=== PATIENT | female | born 1975 | race Caucasian/White ===

== ENCOUNTER 2017-10-18 18:05 | Emergency (ER) | payer MEDICAID, SELFPAY ==
[2017-10-18 18:06] VITALS: BP 124/59; PULSE 97; RESP 18; TEMP 36.6; O2SAT 98; BMI 29.3
[2017-10-18 18:56] VITALS: O2SAT 100
[2017-10-18 19:18] LABS: Carboxyhemoglobin Frac (CO) 2.7 % (0.0-1.5)
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
[2017-10-18 20:05] VITALS: BP 131/83; PULSE 83; RESP 20; O2SAT 99
== END 2017-10-18 20:06 | disposition home or self-care (01) ==
LOC: ED 19:06
PROVIDERS: Emergency Provider Emergency Medicine; Family Provider Family Medicine; PCP Family Medicine
DX: R51 Headache (principal); R41.0 Disorientation, unspecified; Z77.29 Contact with and (suspected) exposure to other hazardous substances; R68.83 Chills (without fever); J02.9 Acute pharyngitis, unspecified; R07.9 Chest pain, unspecified; R06.00 Dyspnea, unspecified; R11.0 Nausea; R19.7 Diarrhea, unspecified; R30.0 Dysuria; N80.9 Endometriosis, unspecified
CPT/HCPCS: 36415; 82375; 99282

== ENCOUNTER 2018-04-28 08:42 | Emergency (ER) | payer MEDICAID, SELFPAY ==
[2018-04-28 08:42] VITALS: BP 115/63; PULSE 121; RESP 18; TEMP 36.4; O2SAT 100; BMI 30.1
--- NOTE | 2018-04-28 08:56 | ED.VISSUMM ---
- ER Visit Summary Date of Service: 04/28/18 Chief Complaint: Abdominal pain, nausea, vomiting, dysuria History of Present Illness: The patient is a 42 F who presents with the above symptoms. Is been ongoing for the past week. She describes a diffuse cramping abdominal pain. Nothing makes it better or worse. She has had nausea with vomiting for the same amount of time. She has also been having some diarrhea. She admits to some dysuria. She has a history of endometriosis and H. pylori. She admits to sweats but no evidence of fevers. She took nothing for this at home. She has a history of C-sections but no other abdominal surgeries. Physical Examination: Vital signs reviewed. HEENT exam unremarkable. Heart is tachycardic and regular rhythm without murmurs. Lungs are clear to auscultation. Abdomen is soft with diffuse abdominal tenderness. No guarding or rebound tenderness. Extremities reveal no edema. Skin exam normal. Neurologic exam normal. Test Results: White blood cell count 17.3, electrolytes normal. Urinalysis is positive for infection. CAT scan reveals bladder wall thickening consistent with a UTI Emergency Department Course and Treatment: Patient was given normal saline, Bentyl and Zofran. I also gave her Toradol. She has evidence of UTI. I will treat her with Bactrim and naproxen for home. Will follow up with her PCP. Treatment Plan: [] Disposition: Discharge Impression: UTI This note was generated with [employer] dictation software. It may contain incorrect words, spelling, and punctuation that were not noted in review of the chart prior to signing ED Disposition - Plan for ED Patient: Chief Complaint: Abd Pain Referrals: Dolye Mullen MD [Primary Care Provider] -
[2018-04-28] MEDS: Dicyclomine 20 MG/2 ML Vial IM (09:34)
[2018-04-28] MEDS: Ondansetron 4 MG/2 ML Vial IV (09:36)
[2018-04-28] MEDS: 0.9% Normal Saline 1,000 ML 1000 ML IV (09:36)
[2018-04-28 09:48] LABS: Absolute Lymphocyte Count 1.59 X10^3/ul (0.83-4.51); Absolute Neutrophil Count 14.7 X10^3/uL (2.0-7.7); Basophil# 0.02 X10^3/uL; Basophil% 0.1 % (0-1); Eosinophil# 0.03 X10^3/uL; Eosinophils% 0.2 % (0-5); Hematocrit 44.2 % (37-47); Hemoglobin 15.7 g/dl (12.0-15.0); Lymphocyte # 1.59 X10^3/ul (4.0); Lymphocyte % 9.2 % (19-41); Mean Corp Hgb Conc 35.5 g/gl (32-36); Mean Corpuscular Hgb 31.2 pg (27.0-32.0); Mean Corpuscular Volume 87.7 fL (81-99); Monocyte# 0.84 X10^3/uL; Monocyte% 4.9 % (0-10); Neutrophil # 14.74 X10^3/uL (2.7-7.7); Neutrophil % 85.3 % (47-70); POSITIVE COUNT NO; POSITIVE DIFFERENTIAL NO; POSITIVE MORPHOLOGY NO; Platelet Count 286 K/mm3 (150-450); RBC Distribution Width CV 12.3 % (11.6-14.6); RBC Distribution Width SD 38.8 fl (35.1-43.9); Red Blood Count 5.04 M/mm3 (4.2-5.4); White Blood Count 17.3 K/mm3 (4.4-11.0)
--- NOTE | 2018-04-28 09:51 | CT_ITS ---
STUDY: CT ABDOMEN AND PELVIS WITHOUT CONTRAST REASON FOR EXAM: Female, 42 years old. Abdominal pain. Burning sensation with urination. RADIATION DOSAGE (If Supplied By Facility): CTDIvol = ( 11.34 ) mGy, DLP = ( 488.21 ) mGycm TECHNIQUE: Transaxial images were obtained from the dome of the diaphragm to the symphysis pubis without oral contrast, and without intravenous contrast. Sagittal and coronal images were reconstructed. Individualized dose optimization techniques were used for this CT. COMPARISON: Comparison is made with prior study dated December 23, 2016. FINDINGS: The visualized lung bases are unremarkable. The visualized portions of the heart are within normal limits. Normal liver. Normal gallbladder and extrahepatic biliary system. Normal spleen. Normal pancreas. Normal bilateral adrenal glands. Normal right kidney. Normal left kidney. There is a small hiatal hernia. Normal small intestine. Normal colon. The appendix is visualized and appears normal. Normal abdominal aorta. Normal inferior vena cava. There is borderline retroperitoneal lymphadenopathy with enlarged nodes no greater than 10mm in the short axis diameter. Diffuse bladder wall thickening although the bladder is not adequately distended. A dominant follicle is seen in the right ovary. This measures 1.6 cm. There is a small umbilical hernia containing fat. Straightening of the normal lumbar lordosis. Disc space narrowing and spondylosis at the L4-L5 level. CT/Abdomen/Pelvis without Cont IMPRESSION: Diffuse bladder wall thickening. Cystitis should BE ruled out. Electronically Signed: Miguel Jo MD at 11:13 EDT Tel [phone], Service support ,
[2018-04-28 10:06] LABS: AST(SGOT) 28 U/L (15-37); Alanine Aminotransfer ALT/SGPT 33 U/L (13-56); Alkaline Phosphatase 85 U/L (45-117); Anion Gap 4 (5-15); BUN 10 mg/dL (7-18); BUN/Creat Ratio 13.6 RATIO (10-20); Calcium,Total 8.8 mg/dL (8.5-10.1); Chloride 106 mmol/L (98-107); Creatinine, Serum 0.73 mg/dL (0.55-1.02); EST Glomerular Filtration Rate 92 mL/min (>60); Est Glom Filt Rate - Afr Amer 111 mL/min (>60); Estimated Creatinine Clearance 86.69 ml/min; Globulin 4.2 g/dL (2.2-4.2); Glucose 106 mg/dL (74-106); Lipase 199 U/L (73-393); Potassium 4.2 mmol/L (3.5-5.1); Protein, Total 8.2 g/dL (6.4-8.2); Sodium Level 137 mmol/L (136-145)
[2018-04-28 10:18] LABS: Mucous, Urine 0 SEEN /hpf (<or=2+); Squamous Epithelial Cells - UA 0 SEEN /hpf (5-10)
[2018-04-28 10:20] LABS: Color, Urine Yellow (Yellow); Glucose, Dipstick 50 mg/dl (Normal); Ketone-Dipstick Negative (Negative); Leukocyte Esterase-Dipstick 100 /ul (Negative); Nitrite-Dipstick Positive (Negative); Occult Blood-Urine 50 /ul (Negative); Protein-Dipstick 30 mg/dl (Negative); Specific Gravity, Urine 1.015 (1.002-1.030); Urine Bilirubin Dipstick Negative (Negative); Urine Clarity Sl. Cloudy (Clear); Urine Urobilinogen Normal (Normal)
[2018-04-28 10:25] LABS: Internal QC Validated? YES +Cl - CLEAR BKGD; Pregnancy, Urine Negative Negative
[2018-04-28 10:28] LABS: Bacteria 2+ /hpf (None Seen); Red Blood Cells-Urine 0-5 SEEN /hpf (0-5); White Blood Cells 10-25 SEEN /hpf (0-5)
[2018-04-28] MEDS: Ketorolac 30 MG/ML Syringe IV ×2 (10:32→11:44)
--- NOTE | 2018-04-28 11:17 | ED.DEP ---
ED Disposition - Plan for ED Patient: Disposition: Home or Assisted Living Chief Complaint: Abd Pain Instructions: ED UTI Cystitis Female Prescriptions: Naproxen [Naprosyn] 500 mg PO BID PRN #20 tab Smz/Tmp Ds [Bactrim Ds] 1 tab PO BID #14 tab Referrals: Doyle Mullen MD [Primary Care Provider] -
[2018-04-28 11:53] VITALS: PULSE 110; RESP 17; O2SAT 97
== END 2018-04-28 11:56 | disposition home or self-care (01) ==
PROVIDERS: Emergency Provider Emergency Medicine; Family Provider Family Medicine; PCP Family Medicine
DX: N39.0 Urinary tract infection, site not specified (principal); R19.7 Diarrhea, unspecified; N80.9 Endometriosis, unspecified; Z86.19 Personal history of other infectious and parasitic diseases
CPT/HCPCS: 74176; 80053; 81001; 81025; 83690; 85025; 87077; 87086; 87088; 87186; 96361; 96372; 96374; 96375; 99285; J7030; A4216; J2405

== ENCOUNTER 2019-02-22 10:05 | Emergency (ER) | payer MEDICAID, SELFPAY ==
[2019-02-22 10:06] VITALS: BP 140/84; PULSE 81; RESP 18; TEMP 36.6; O2SAT 99; BMI 31.8
--- NOTE | 2019-02-22 10:53 | ED.VIS.GEN ---
History of Present Illness Chief Complaint: Shortness of Breath Informant: Patient Onset: Weeks Context: Gradual Onset Timing: Intermittent Current Severity: Moderate Maximum Severity: Moderate Narrative: The patient presents to the emergency department with cough, nasal drainage, sneezing. She is concerned because recently, they were doing cleaning at home. She states that she found which he suspected to be black mold. She is noticed that everyone in the house has been having similar symptoms. She denies any short of breath, but has had cough and generalized fatigue. She denies any fevers or chills. She denies chest pain or back pain. The patient has no history of underlying lung disease. She is otherwise been in her normal state of health. Prior similar symptoms: No Recent Illness/Hospitalization: No Past Medical History - Allergies and Home Meds Allergies/Adverse Reactions: Allergies Penicillins Allergy (Verified 02/22/19 10:08) Anaphylaxis Primary Care Physician: Doyle Mullen MD [Primary Care Provider] - Prior records reviewed: Yes Past Medical History: - Surgical History: no surgical history Smoking Status: Never smoker Review of Systems General: Reports: Malaise. Denies: Chills, Fever, Sweats Eyes: Denies: Visual changes - bilaterally, Diplopia ENT: Denies: Rhinorrhea, Sore throat Cardiovascular: Denies: Chest pain, Palpitations Respiratory: Reports: Cough. Denies: Dyspnea, Dyspnea on exertion Gastrointestinal: Denies: Abdominal pain, Nausea, Vomiting, Diarrhea, Melena, Hematochezia Genitourinary: Denies: Dysuria, Hematuria, Frequency Musculoskeletal: Denies: Back pain, Extremity Pain Skin: Denies: Rash, Wounds Neurological: Denies: Headache, Weakness, Numbness Physical Exam Vital Signs/Narrative: Vital Signs Temp Pulse Resp BP Pulse Ox 02/22/19 10:06 97.8 F 81 18 140/84 H 99 Inital Vital Signs reviewed: Yes General: Well nourished, Well developed, No Acute Distress Head: Normocephalic, Atraumatic Eyes: Perrl, EOMI ENT: Moist mucous membranes, No rhinorrhea Neck: Supple, Nontender Cardiovascular: Regular rate, Regular rhythm, No murmurs Respiratory: No distress, CTA bilaterally, Chest nontender Abdomen: Soft, Nontender, Nondistended, Normal bowel sounds Back: Nontender, Normal Inspection Extremities: Nontender, No edema Skin: Normal color, No rash Neurological: Alert, Oriented x3, Cranial nerves II-XII grossly intact, Normal Strength, Normal Sensation Psychological: Normal affect, Normal Mood Diagnostic/Tx/Re-eval - Medical Decision Making The patient symptoms do seem primarily reactive. She has no wheezing. Oropharynx is patent. Heart is regular rate and rhythm. She has no hypoxia or tachypnea. There is no history of carbon monoxide exposure and this is been going on for 3 weeks. Again, my suspicion is that this is likely an irritant. Patient will be placed on prednisone and allergy medication. She is in the process of trying to treat the mold. I do not suspect a dangerous process. I do feel that she is safe for discharge. Impression Allergic bronchitis ED Disposition - Plan for ED Patient: Instructions: BRONCHOSPASM (Adult) Prescriptions: Prednisone [Deltasone] 60 mg PO DAILY #15 tab Prescription Printed Referrals: Doyle Mullen MD [Primary Care Provider] -
[2019-02-22] MEDS: predniSONE 20 MG Tablet 60 MG PO (11:29)
[2019-02-22 11:43] VITALS: PULSE 74; RESP 14; O2SAT 98
== END 2019-02-22 11:43 | disposition home or self-care (01) ==
LOC: ED 10:42
PROVIDERS: Emergency Provider Emergency Medicine; Family Provider Family Medicine; PCP Family Medicine
DX: J45.909 Unspecified asthma, uncomplicated (principal)
CPT/HCPCS: 99283

== ENCOUNTER 2021-03-23 09:55 | Emergency (ER) | payer MEDICAID, SELFPAY ==
[2021-03-23 09:56] VITALS: BP 141/84; PULSE 98; RESP 16; TEMP 36.3; O2SAT 100; BMI 28.3
--- NOTE | 2021-03-23 10:45 | US_ITS ---
STUDY: ABDOMINAL ULTRASOUND - RIGHT UPPER QUADRANT REASON FOR VISIT: Female, 45 years old right upper quadrant pain with nausea and vomiting and diarrhea. TECHNIQUE: Ultrasound evaluation of the right upper quadrant was performed with real-time and static dang-scale imaging. TECHNICAL QUALITY: Adequate. COMPARISON: None. FINDINGS: Liver: The liver measures 15.6 cm. There is increased echogenicity consistent with fatty infiltration. The bile ducts are within normal limits. There is hepatic color flow. The direction of portal flow is hepatopetal. There is no demonstrated mass lesion. Gallbladder: Normal distended gallbladder. The gallbladder wall measures 2 mm. There is a negative sonographic Maloney''s sign. There is no pericholecystic fluid. 4 mm echogenic focus within the gallbladder lumen without posterior shadowing. This may represent either a small polyp or tiny nonshadowing stone. Common Bile Duct (C.B.D.): The common bile duct measures 9 mm. Pancreas: Normal size of the head, body and tail of the pancreas. There is normal echogenicity of the pancreas. There is no demonstrated pancreatic mass or cyst. Right Kidney: Normal size of the right kidney. The right kidney measures 11.5 cm x 5.1 cm x 3.9 cm. Normal renal cortex. The right cortex measures 1.1 cm. There is no demonstrated renal mass or cyst. There is no right hydronephrosis. US/Gallbladder IMPRESSION: Mild fatty infiltration of the liver. Possible tiny gallstone versus polyp. Dilated common bile duct measuring 9 mm. Electronically Signed: Miguel Jo MD at 13:20 EDT , Service support ,
--- NOTE | 2021-03-23 10:45 | EKG12_ITS ---
Test Reason : ABD PAIN Blood Pressure : / mmHG Vent. Rate : 091 BPM Atrial Rate : 091 BPM P-R Int : 112 ms QRS Dur : 090 ms QT Int : 372 ms P-R-T Axes : 063 054 033 degrees QTc Int : 457 ms Normal sinus rhythm Normal ECG Confirmed by RIDDHI RUDD, BRIAN ([id number]), news videotape editor KADIE NICOLE ([id number]) on 03/25/2021 11:24:02 AM Referred By: MEI Confirmed By:BRIAN HANNON MD
--- NOTE | 2021-03-23 10:47 | ED.VIS.GI ---
HPI HPI - GI History of Present Illness Chief Complaint: Abd Pain Informant: patient Narrative Narrative: Patient is a 45-year-old female with history of H. pylori infection and ongoing stomach issues presenting with worsening epigastric abdominal pain, nausea and vomiting. Patient states her symptoms been worsening for the past 2 weeks. Today she started feel dizzy while she was driving, nauseous and pulled over. She threw up yellow liquid and was dry heaving. She notes at that time she was feeling short of breath and her heart was racing. She has had associated diarrhea. Patient notes she had intermittent dark/black stools as well. She took her self off of ranitidine at some point because she received a flare in the mail stating that it could cause cancer. She notes that she was treated with 2 courses of antibiotics for H. pylori about a year ago but could not tolerate the medication so she stopped the treatment. Patient states the pain is a burning in her stomach and has been more constant over the past 2 weeks. She also feels that she is been more forgetful, cold all the time and gets numbness in her fingers. She notes she has an appointment to see GI doctor next week. She denies any chest pain or difficulty breathing. No other complaints at this time. She does admit she feels very anxious. Patient states over the past 2 weeks has had 2 - Covid test, the first on the and the second on the . PFSH PFSH Home Medications gabapentin [Neurontin] 300 mg PO QHS 04/28/18 [History Last Taken 04/27/18] naproxen 500 mg PO BID PRN #20 tab 04/28/18 [Rx Last Taken Unknown] sulfamethoxazole-trimethoprim 1 tab PO BID #14 tab 04/28/18 [Rx Last Taken Unknown] prednisone 60 mg PO DAILY #15 tab 02/22/19 [Rx Last Taken Unknown] famotidine [Pepcid] 20 mg PO BID #20 tab 03/23/21 [Rx Last Taken Unknown] ondansetron HCl [Zofran] 4 mg PO Q6H PRN #14 tab 03/23/21 [Rx Last Taken Unknown] oxycodone-acetaminophen [Percocet] 1 tab PO Q6H PRN 3 Days #12 tab 03/23/21 [Rx Last Taken Unknown] Allergy/AdvReac Type Severity Reaction Status Date / Time Penicillins Allergy Anaphylaxis Verified 02/22/19 10:08 Social History Smoking Status: Never smoker ROS ROS ED Constitutional Constitutional ED: Reports malaise; Denies chills or fever(s) Eyes Eyes: Denies blurry vision or loss of vision ENT ENT ED: Denies rhinorrhea or sore throat Cardiovascular Cardiovascular: Reports racing heartbeat; Denies chest pain or dizziness Respiratory/Chest Respiratory/Chest: Reports dyspnea; Denies cough or dyspnea on exertion Gastrointestinal Gastrointestinal: Reports abdominal pain, diarrhea, melena, nausea and vomiting Genitourinary Genitourinary ED: Denies dysuria or hematuria Musculoskeletal Musculoskeletal: Denies arthralgias or myalgias Integumentary Denies rash or wounds Neurologic Neurologic: Denies focal weakness or headache(s) Psychiatric Psychiatric: Reports anxiety; Denies behavioral changes or depression EXAM Physical Exam Const Vital Signs: 03/23/21 09:56 03/23/21 11:15 03/23/21 12:39 Temperature 97.4 F L Temperature Source Temporal Pulse Rate 98 83 71 Respiratory Rate 16 18 18 Blood Pressure 141/84 H 127/85 H 122/73 H Blood Pressure Mean 103 99 89 Pulse Ox 100 100 100 Oxygen Delivery Method Room Air Room Air Room Air 03/23/21 13:52 03/23/21 14:55 Temperature Temperature Source Pulse Rate 81 Respiratory Rate 12 Blood Pressure 134/76 H Blood Pressure Mean Pulse Ox Oxygen Delivery Method Room Air Positive well nourished and well developed General Appearance ED: well developed; Negative for pallor HEENT Reports TM's clear and moist mucous membranes normocephalic Tympanic Membrane ED: Yes TM's clear Eyes PERRL and EOMs intact bilaterally Neck no lymphadenopathy and supple Resp normal respiratory effort and clear to auscultation bilaterally Cardio regular rate, regular rhythm and no murmurs GI non-tender and non-distended GI Narrative: Negative Maloney sign, mild pain at epigastric region Auscultation: normoactive bowel sounds Palpation: soft Extremity full ROM Neuro Sensorium / Orientation: alert, oriented to person, oriented to place and oriented to time Motor Exam: Negative for general weakness Psych mental status grossly normal Mood & Affect: anxious Skin General Skin Exam: Negative for jaundice or pallor Lesions: no lesions Rashes: no rashes MDM MDM MDM Narrative Medical decision making narrative: Patient is evaluated with worsening pain in her epigastric region. It does seem to radiate slightly to her right flank. She appears nontoxic but is quite anxious. No peritoneal findings on exam. Given her history of H. pylori and gastritis I suspect that this is more likely stomach in nature. She does have an appointment to see GI next week. Given that it did worsen acutely after eating pizza I did obtain a right upper quadrant ultrasound which shows a normal gallbladder with one questionable polyp versus stone however her common bile duct is dilated. Patient does have normal bilirubin, AST/ALT and alkaline phosphatase. Her white blood cell count is normal. There is no findings consistent with acute cholecystitis. I do not suspect ascending cholangitis or an obstructing stone. I did discuss the case with surgery on-call, Dr. Costello, who states that patient could either follow-up outpatient or be admitted to the hospitalist service if she cannot tolerate outpatient follow-up. Patient would like to try outpatient treatment. She is given a prescription for Pepcid, Zofran and Percocet. She is counseled on return precautions including fever, worsening pain or inability to tolerate p.o. Patient verbalizes agreement understand with this plan. She is also given referral to surgery for further outpatient follow-up for possible biliary colic as a cause of her pain. Lab Data Attestation: I reviewed the patient's lab results. Labs: Laboratory Results - last 24 hr 03/23/21 03/23/21 03/23/21 10:20 10:20 10:20 WBC 8.7 RBC 4.81 Hgb 14.9 Hct 44.0 MCV 91.5 MCH 31.0 MCHC 33.9 RDW Std Deviation 39.8 RDW Coeff of [place] 11.9 Plt Count 225 MPV 10.9 Immature Gran % (Auto) 0.200 Neut % (Auto) 63.0 Lymph % (Auto) 27.3 [place] % (Auto) 6.0 Eos % (Auto) 3.0 Baso % (Auto) 0.5 Absolute Neuts (auto) 5.5 Absolute Lymphs (auto) 2.37 Nucleated RBC % 0 Sodium 137 Potassium 3.9 Chloride 108 H Carbon Dioxide 25.0 Anion Gap 4 L BUN 9 Creatinine 0.64 Estim Creat Clear Calc 95.86 Est GFR (MDRD) Af Amer 128 Est GFR (MDRD) Non-Af 106 BUN/Creatinine Ratio 14.0 Glucose 105 Calcium 9.1 Total Bilirubin 0.40 AST 20 ALT 28 Alkaline Phosphatase 61 Troponin I High Sens 15 Total Protein 7.1 Albumin 3.5 Globulin 3.6 Albumin/Globulin Ratio 1.0 Lipase 156 TSH 0.75 Urine Color Urine Clarity Urine pH Ur Specific [place] Urine Protein Urine Glucose (UA) Urine Ketones Urine Occult Blood Urine Nitrite Urine Bilirubin Urine Urobilinogen Ur Leukocyte Esterase Urine RBC Urine WBC Ur Squamous Epith Cells Urine Bacteria Urine Mucus Urine Test 03/23/21 10:52 WBC RBC Hgb Hct MCV MCH MCHC RDW Std Deviation RDW Coeff of [place] Plt Count MPV Immature Gran % (Auto) Neut % (Auto) Lymph % (Auto) [place] % (Auto) Eos % (Auto) Baso % (Auto) Absolute Neuts (auto) Absolute Lymphs (auto) Nucleated RBC % Sodium Potassium Chloride Carbon Dioxide Anion Gap BUN Creatinine Estim Creat Clear Calc Est GFR (MDRD) Af Amer Est GFR (MDRD) Non-Af BUN/Creatinine Ratio Glucose Calcium Total Bilirubin AST ALT Alkaline Phosphatase Troponin I High Sens Total Protein Albumin Globulin Albumin/Globulin Ratio Lipase TSH Urine Color Yellow Urine Clarity Sl. Cloudy Urine pH 6.0 Ur Specific [place] 1.015 Urine Protein Negative Urine Glucose (UA) Normal Urine Ketones Negative Urine Occult Blood Negative Urine Nitrite Negative Urine Bilirubin Negative Urine Urobilinogen Normal Ur Leukocyte Esterase Negative Urine RBC 0 SEEN Urine WBC 0 SEEN Ur Squamous Epith Cells 0-5 SEEN Urine Bacteria 0 SEEN Urine Mucus 0 SEEN Urine Test Negative Radiography Diagnostic Testing: Radiology Impression Gallbladder Ultrasound 03/23/21 10:45 IMPRESSION: Mild fatty infiltration of the liver. Possible tiny gallstone versus polyp. Dilated common bile duct measuring 9 mm. Electronically Signed: Miguel Jo MD at 13:20 EDT , Service support , Rhythm Strip Rhythm Strip: Sinus Rhythm Rate: 91 Ectopy: None EKG Initial EKG: Attestation: I personally reviewed and interpreted this EKG as follows: Interpretation: Sinus Rhythm Comments: Normal sinus rhythm at a rate of 91 Normal axis Normal intervals Normal ST segments Discharge Plan Triage Chief Complaint: Abd Pain ED Provider: Asyia Gottlieb Dx/Rx/DC Orders Instructions: ED Abdominal Pain Unkn Cause Fem, ED PEPTIC ULCER vs GASTRITIS Prescriptions: New oxycodone-acetaminophen [Percocet] 5-325 mg tablet 1 tab PO Q6H PRN (Reason: pain) 3 Days Qty: 12 RF: 0 ondansetron HCl [Zofran] 4 mg tablet 4 mg PO Q6H PRN (Reason: nausea and vomiting) Qty: 14 RF: 0 famotidine [Pepcid] 20 mg tablet 20 mg PO BID Qty: 20 RF: 0 No Action gabapentin [Neurontin] 300 MG capsule 300 mg PO QHS RF: 0 sulfamethoxazole-trimethoprim 1 TABLET tablet 1 tab PO BID Qty: 14 RF: 0 naproxen 500 MG tablet 500 mg PO BID PRN Qty: 20 RF: 0 prednisone 20 MG tablet 60 mg PO DAILY Qty: 15 RF: 0 Primary Care Provider: Doyle Mullen Referrals: Adebayo Costello MD [STAFF PHYSICIAN] - 3-5 Days Doyle Mullen MD [Primary Care Provider] - Activity Restrictions/Additional Instructions: Your work-up showed some dilation of her common bile duct but everything else was normal. We are not able to tell if you have an ulcer versus inflammation of your stomach that is also causing her pain. You been referred to general surgery for further evaluation of your gallbladder with possible gallstones. Avoid any anti-inflammatory such as ibuprofen or naproxen as well as alcohol. Stick to a low-fat and low acid diet to help with your pain. Return the emergency room if you develop fever or any worsening symptoms. Disposition Disposition: Home, Self Care Discharge Date/Time: 03/23/21 15:11
[2021-03-23 11:01] LABS: Bacteria 0 SEEN /hpf (None Seen); Mucous, Urine 0 SEEN /hpf (<or=2+); Red Blood Cells-Urine 0 SEEN /hpf (0-5); White Blood Cells 0 SEEN /hpf (0-5)
[2021-03-23 11:03] LABS: Color, Urine Yellow (Yellow); Glucose, Dipstick Normal (Normal); Ketone-Dipstick Negative (Negative); Leukocyte Esterase-Dipstick Negative /ul (Negative); Nitrite-Dipstick Negative (Negative); Occult Blood-Urine Negative /ul (Negative); Protein-Dipstick Negative (Negative); Specific Gravity, Urine 1.015 (1.002-1.030); Urine Bilirubin Dipstick Negative (Negative); Urine Clarity Sl. Cloudy (Clear); Urine Urobilinogen Normal (Normal)
[2021-03-23 11:05] LABS: Absolute Lymphocyte Count 2.37 X10^3/uL (0.83-4.51); Absolute Neutrophil Count 5.5 X10^3/uL (2.0-7.7); Basophil# 0.04 X10^3/uL; Basophil% 0.5 % (0-1); Eosinophil# 0.26 X10^3/uL; Hemoglobin 14.9 g/dL (12.0-15.0); Lymphocyte # 2.37 X10^3/ul (0.83-4.51); Lymphocyte % 27.3 % (19-41); Mean Corp Hgb Conc 33.9 g/dL (32-36); Mean Corpuscular Volume 91.5 fL (81-99); Mean Platelet Vol. 10.9 fl (6.2-12.0); Monocyte# 0.52 X10^3/uL; NRBC Flagged by Analyzer 0 % (0-5); Neutrophil # 5.46 X10^3/uL (2.7-7.7); POSITIVE COUNT YES; Platelet Count 225 K/mm3 (150-450); RBC Distribution Width CV 11.9 % (11.6-14.6); RBC Distribution Width SD 39.8 fl (35.1-43.9); Red Blood Count 4.81 M/mm3 (4.2-5.4); White Blood Count 8.7 K/mm3 (4.4-11.0)
[2021-03-23 11:12] LABS: Internal QC Validated? YES +Cl - CLEAR BKGD; Pregnancy, Urine Negative Negative; Squamous Epithelial Cells - UA 0-5 SEEN /hpf (5-10)
[2021-03-23 11:15] VITALS: BP 127/85; PULSE 83; RESP 18; O2SAT 100
[2021-03-23] MEDS: 0.9% Normal Saline 1,000 ML 1000 ML IV (11:18)
[2021-03-23] MEDS: Ondansetron 4 MG/2 ML Vial IV (11:18)
[2021-03-23 11:19] LABS: AST(SGOT) 20 U/L (15-37); Alanine Aminotransfer ALT/SGPT 28 U/L (13-56); Albumin, Serum 3.5 g/dL (3.2-5.0); Alkaline Phosphatase 61 U/L (45-117); Anion Gap 4 (5-15); BUN 9 mg/dL (7-18); Calcium,Total 9.1 mg/dL (8.5-10.1); Chloride 108 mmol/L (98-107); Creatinine, Serum 0.64 mg/dL (0.55-1.02); EST Glomerular Filtration Rate 106 mL/min (>60); Est Glom Filt Rate - Afr Amer 128 mL/min (>60); Estimated Creatinine Clearance 95.86 ml/min; Globulin 3.6 g/dL (2.2-4.2); Glucose 105 mg/dL (74-106); Lipase 156 U/L (73-393); Potassium 3.9 mmol/L (3.5-5.1); Protein, Total 7.1 g/dL (6.4-8.2); Sodium Level 137 mmol/L (136-145); Troponin-I HS 15 pg/mL (3.0-54.0)
[2021-03-23] MEDS: Famotidine 200 MG/20 ML MDV 20 MG in 0.9% Normal Saline (Pres. free 8 ML 300 MG IV (11:19)
[2021-03-23 11:52] LABS: Thyroid Stim Hormone (TSH) 0.75 uIU/mL (0.358-3.74)
[2021-03-23 12:39] VITALS: BP 122/73; PULSE 71; RESP 18; O2SAT 100
[2021-03-23] MEDS: Morphine 4 MG/ML Syringe IV (13:14)
[2021-03-23] MEDS: Mag Hydrox/Al Hydrox/Simeth 30 ML UDC PO (14:49)
[2021-03-23] MEDS: oxyCODONE 5 MG Tablet PO (14:49)
[2021-03-23 14:55] VITALS: BP 134/76; PULSE 81; RESP 12
== END 2021-03-23 15:11 | disposition home or self-care (01) ==
PROVIDERS: Emergency Provider Emergency Medicine; PCP Family Medicine
DX: R10.11 Right upper quadrant pain (principal); R10.13 Epigastric pain; R11.2 Nausea with vomiting, unspecified; R42 Dizziness and giddiness; F41.9 Anxiety disorder, unspecified; Z79.1 Long term (current) use of non-steroidal anti-inflammatories (NSAID); Z79.899 Other long term (current) drug therapy
CPT/HCPCS: 76705; 80053; 81001; 81025; 83690; 84443; 84484; 85025; 93005; 96361; 96374; 96375; 99285; J7030; A4216; J2405; J3490